=== PATIENT | male | born 1995 | race Hispanic/Latino ===

== ENCOUNTER 2018-07-12 14:20 | Emergency (ER) | payer OTHER ==
[2018-07-12] MEDS ORDERED: IPRATROPIUM/ALBUTEROL SULFATE 3 ML SOLUTION IH ONE ×2 (14:43→15:39)
[2018-07-12] MEDS ORDERED: DEXAMETHASONE SOD PHOSPHATE 10MG/ML 1ML VIAL ONE (15:26)
== END 2018-07-12 15:54 | disposition home or self-care (01) ==
LOC: EDH 14:20
DX: J45.31 Mild persistent asthma with (acute) exacerbation (principal); J20.9 Acute bronchitis, unspecified; Z87.891 Personal history of nicotine dependence
CPT/HCPCS: 71046; 94640 ×2; 96372; 99284; J1100

== ENCOUNTER 2018-08-11 13:33 | Emergency (ER) | payer OTHER ==
[2018-08-11] MEDS ORDERED: HYDROCODONE/ACETAMINOPHEN 10/325 MG TAB ONE (14:46)
[2018-08-11] MEDS ORDERED: TETANUS/DIPHTHERIA TOXOID [ADULT] 0.5 ML VIAL IM ONE (14:47)
== END 2018-08-11 16:59 | disposition home or self-care (01) ==
LOC: EDH 13:33
DX: S01.83XA Puncture wound without foreign body of other part of head, initial encounter (principal); S10.81XA Abrasion of other specified part of neck, initial encounter; J45.909 Unspecified asthma, uncomplicated; X99.1XXA Assault by knife, initial encounter; Y93.89 Activity, other specified; Y92.89 Other specified places as the place of occurrence of the external cause; Y99.8 Other external cause status
CPT/HCPCS: 70450; 70486; 90471; 90714